=== PATIENT | female | born 1945 | race Caucasian/White ===

== ENCOUNTER → 2016-12-23 | Outpatient (CLI) | payer MEDICARE ==
--- NOTE | 2016-12-24 12:49 | MM ---
Reason for exam: screening (asymptomatic). Last mammogram was performed 1 year ago. History: Patient is postmenopausal. Benign left mammotome panel of the left breast, July 14, 2005. Took estrogen for 11 years beginning at age 48. Took progesterone for 11 years beginning at age 48. Physical Findings: A clinical breast exam by your physician is recommended on an annual basis and results should be correlated with mammographic findings. MG 3D Screening Mammo W/Cad Bilateral CC and MLO view(s) were taken. Prior study comparison: December 23, 2015, bilateral MG 3d screening mammo w/cad. December 02, 2014, bilateral MG screening mammo w CAD. November 20, 2013, bilateral digital screening mammo w/CAD. November 14, 2012, bilateral digital screening mammo w/CAD. There are scattered fibroglandular densities. Previous mammotome biopsy in the left breast. There is chronic nodularity in the left breast. No significant changes when compared with prior studies. ASSESSMENT: Negative, BI-RAD 1 RECOMMENDATION: Routine screening mammogram of both breasts in 1 year.
== END | disposition home or self-care (01) ==
LOC: RADMAMWWP 09:18
PROVIDERS: ATTEND Internal Medicine
DX: Z12.31 Encounter for screening mammogram for malignant neoplasm of breast (principal)
CPT/HCPCS: 77063; G0202

== ENCOUNTER → 2018-01-25 | Outpatient (CLI) | payer MEDICARE ==
--- NOTE | 2018-01-26 13:23 | MM ---
Reason for exam: screening (asymptomatic). Last mammogram was performed 1 year and 1 month ago. History: Patient is postmenopausal. Benign left mammotome panel of the left breast, July 14, 2005. Took estrogen for 11 years beginning at age 48. Took progesterone for 11 years beginning at age 48. Physical Findings: A clinical breast exam by your physician is recommended on an annual basis and results should be correlated with mammographic findings. MG 3D Screening Mammo W/Cad Bilateral CC and MLO view(s) were taken. Prior study comparison: December 23, 2016, bilateral MG 3d screening mammo w/cad. December 23, 2015, bilateral MG 3d screening mammo w/cad. There are scattered fibroglandular densities. Benign appearing bilateral calcifications. Left biopsy marker noted. ASSESSMENT: Benign, BI-RAD 2 RECOMMENDATION: Routine screening mammogram of both breasts in 1 year.
== END | disposition home or self-care (01) ==
LOC: RADMAMWWP 12:48
PROVIDERS: ATTEND Internal Medicine
DX: Z12.31 Encounter for screening mammogram for malignant neoplasm of breast (principal)
CPT/HCPCS: 77063; 77067

== ENCOUNTER → 2018-02-06 | Outpatient (CLI) | payer MEDICARE ==
--- NOTE | 2018-02-07 06:53 | US ---
EXAMINATION TYPE: US venous doppler duplex LE LT DATE OF EXAM: 02/06/2018 12:54 PM COMPARISON: NONE CLINICAL HISTORY: M25.572Pain in left ankle and joints of left foot. SIDE PERFORMED: TECHNIQUE: The lower extremity deep venous system is examined utilizing real time linear array sonog kunal with graded compression, doppler sonography and color-flow sonography. VESSELS IMAGED: External Iliac Vein (EIV) Common Femoral Vein Deep Femoral Vein Greater Saphenous Vein * Femoral Vein Popliteal Vein Small Saphenous Vein * Proximal Calf Veins (* superficial vessels) Left Leg: Negative for DVT GSV and posterior tib v's also scanned per order. Preliminary results given to Suha callahan per order immediately following exam. IMPRESSION: 1. No diagnostic evidence of DVT.
== END | disposition home or self-care (01) ==
LOC: RADUSWWP 12:25
PROVIDERS: ATTEND Orthopaedic Surgery
DX: M25.572 Pain in left ankle and joints of left foot (principal); M79.662 Pain in left lower leg; M21.42 Flat foot [pes planus] (acquired), left foot; M76.822 Posterior tibial tendinitis, left leg; I80.9 Phlebitis and thrombophlebitis of unspecified site

== ENCOUNTER → 2019-01-26 | Outpatient (CLI) | payer MEDICARE ==
--- NOTE | 2019-01-30 10:05 | MM ---
Reason for exam: screening (asymptomatic). Last mammogram was performed 1 year ago. History: Patient is postmenopausal. Benign left mammotome panel of the left breast, July 14, 2005. Took estrogen for 11 years beginning at age 48. Took progesterone for 11 years beginning at age 48. Physical Findings: A clinical breast exam by your physician is recommended on an annual basis and results should be correlated with mammographic findings. MG 3D Screening Mammo W/Cad Bilateral CC and MLO view(s) were taken. Prior study comparison: January 25, 2018, bilateral MG 3d screening mammo w/cad. December 23, 2016, bilateral MG 3d screening mammo w/cad. The breast tissue is heterogeneously dense. This may lower the sensitivity of mammography. There is an upper outer quadrant left mass at middle depth that appears smaller than priors however spot images will be performed. Benign appearing bilateral calcifications. No suspicious abnormality on the right. Left superior posterior depth asymmetry. ASSESSMENT: Incomplete: need additional imaging evaluation, BI-RAD 0 RECOMMENDATION: Special view mammogram of the left breast. If lesion persists on supplemental views, image directed ultrasound is recommended. [facility] will attempt to contact patient to return for supplemental views and ultrasound if indicated.
== END | disposition home or self-care (01) ==
LOC: RADMAMWWP 15:04
PROVIDERS: ATTEND Internal Medicine
DX: Z12.31 Encounter for screening mammogram for malignant neoplasm of breast (principal)
CPT/HCPCS: 77063; 77067

== ENCOUNTER → 2019-02-02 | Outpatient (CLI) | payer MEDICARE ==
--- NOTE | 2019-02-05 07:58 | MM ---
Reason for exam: additional evaluation requested from abnormal screening. Last mammogram was performed less than 1 month ago. History: Patient is postmenopausal. Benign left mammotome panel of the left breast, July 14, 2005. Took estrogen for 11 years beginning at age 48. Took progesterone for 11 years beginning at age 48. Physical Findings: Nurse did not find any significant physical abnormalities on exam. MG 3D Work Up W/Cad LT Spot compression CC, spot compression MLO, and LM view(s) were taken of the left breast. Prior study comparison: January 26, 2019, bilateral MG 3d screening mammo w/cad. January 25, 2018, bilateral MG 3d screening mammo w/cad. The breast tissue is heterogeneously dense. This may lower the sensitivity of mammography. Benign appearing calcifications in the left breast. The 4mm focal asymmetry of the upper outer quadrant at middle depth 8cm from nipple improves on additional views, however precautionary ultrasound will be performed. These results were verbally communicated with the patient and result sheet given to the patient on 02/02/19. ASSESSMENT: Incomplete: need additional imaging evaluation, BI-RAD 0 RECOMMENDATION: Ultrasound of the left breast. (upper outer quadrant)
--- NOTE | 2019-02-05 08:00 | USB ---
Reason for exam: additional evaluation requested from abnormal screening. History: Patient is postmenopausal. Benign left mammotome panel of the left breast, July 14, 2005. Took estrogen for 11 years beginning at age 48. Took progesterone for 11 years beginning at age 48. US Breast Workup Limited LT Left limited breast ultrasound including focal area of concern, retroareolar and axilla demonstrates a 0.4 x 1.0 x 0.5cm cystic lesion at 12 o'clock with debris seen on one image only, patient is asymptomatic, follow up 6 months to exclude small intraductal mass and a 1.3 x 0.8 x 0.5cm cystic lesion at the posterior nipple. These results were verbally communicated with the patient and result sheet given to the patient on 02/02/19. ASSESSMENT: Probably benign, BI-RAD 3 RECOMMENDATION: Ultrasound of the left breast in 6 months.
== END | disposition home or self-care (01) ==
LOC: RADMAMWWP 14:12
PROVIDERS: ATTEND Internal Medicine
DX: R92.8 Other abnormal and inconclusive findings on diagnostic imaging of breast (principal)
CPT/HCPCS: 77065; 76642; G0279; 77061

== ENCOUNTER → 2019-08-09 | Outpatient (CLI) | payer MEDICARE ==
--- NOTE | 2019-08-09 11:36 | USB ---
Reason for exam: follow-up at short interval from prior study. History: Patient is postmenopausal. Benign left mammotome panel of the left breast, July 14, 2005. Took estrogen for 11 years beginning at age 48. Took progesterone for 11 years beginning at age 48. Physical Findings: Nurse did not find any significant physical abnormalities on exam. US Breast Limited LT Left limited breast ultrasound including focal area of concern, retroareolar and axilla demonstrates a 0.5 x 0.3cm cystic lesion at the posterior nipple. These results were verbally communicated with the patient and result sheet given to the patient on 08/09/19. ASSESSMENT: Benign, BI-RAD 2 RECOMMENDATION: Return to routine screening mammogram schedule for both breasts. Back on schedule for January 2020.
== END | disposition home or self-care (01) ==
LOC: RADUSWWP 10:17
PROVIDERS: ATTEND Internal Medicine
DX: R92.8 Other abnormal and inconclusive findings on diagnostic imaging of breast (principal)

== ENCOUNTER → 2019-08-27 | Outpatient (CLI) | payer MEDICARE ==
[2019-08-27 16:41] LABS: African American GFR (CKD) 102.6 (60.0-200.0); Albumin 4.3 g/dL (3.80-4.90); Albumin/Globulin Ratio 2.15 (1.60-3.17); BUN/Creat Ratio 26.67 Ratio (12.00-20.00); Calcium 9.4 mg/dL (8.7-10.3); Chol/HDL Ratio 2.67; LDL Cholesterol,Calculated 75.2 mg/dL (0.0-131.0); Non-African American GFR(CKD) 88.5 (60.0-200.0); Potassium 4.5 mmol/L (3.5-5.5); Total Bilirubin 0.8 mg/dL (0.2-1.2); Total Protein 6.3 g/dL (6.2-8.2); VLDL Calculation 26.8 mg/dL (5.00-40.00)
== END | disposition home or self-care (01) ==
LOC: LABWHC1 10:07
PROVIDERS: ATTEND Internal Medicine Endocrinology, Diabetes & Metabolism
DX: E11.65 Type 2 diabetes mellitus with hyperglycemia (principal)
CPT/HCPCS: 36415; 80053; 80061; 82607; 84443

== ENCOUNTER → 2020-04-11 | Outpatient (CLI) | payer MEDICARE ==
--- NOTE | 2020-04-11 18:33 | BD ---
EXAMINATION TYPE: Axial Bone Density DATE OF EXAM: 04/11/2020 COMPARISON: 06.07.2012 CLINICAL HISTORY: 75 YR OLD FEMALE......ICD-10 CODE: M85.9 DISORDER OF BONE Height: 59.5 Weight: 199 FRAX RISK QUESTIONS: Glucocorticoids (More than 3mos): YES (Ex: prednisone, prednisolone, methylprednisolone, dexamethasone, and hydrocortisone). RISK FACTORS HISTORY OF: Postmenopausal woman: YES, IN HER 50s Take estrogen and/or progesterone medications: YES, FOR A SHORT WHILE Lost more than 2 inches in height since high school: YES Frequent falls: UNSTEADY, USING CANE Poor Health: MANY COMPLAINTS Hyperparathyroidism: NO Adrenal Insufficiency: NO MEDICATIONS: Prednisone or other steroids: STEROIDAL INHALER ON AND OFF FOR MANY YRS Thyroid Medications: YES, SYNTHROID...15+ YRS Additional Medications: BP MEDS, DIABETIC MEDS, REFLUX MEDS, STATIN FOR CHOLESTEROL, VIT D AND CALCIU M Additional History: HYPERTENSION, REFLUX, DIABETIC CHOLESTEROL, OSTEOARTHRITIS EXAM MEASUREMENTS: Bone mineral densitometry was performed using the [employer] System. Bone mineral density as measured about the Lumbar spine is: ----- L1-L4(G/cm2): 1.488 T Score Values are as follows: ----- L1: 0.7 ----- L2: 2.5 ----- L3: 3.5 ----- L4: 3.4 ----- L1-L4: 2.6 Bone mineral density has: Increased 14.9% since study of: 06.07.2012 Bone mineral density about the R hip (g/cm2): 1.033 Bone mineral density about the L hip (g/cm2): 0.998 T Score values are as follows: -----R Neck: -1.1 -----L Neck: -1.2 -----R Total:0.2 -----L Total: -0.1 Bone mineral density has: Decreased -5.1% since study of: 06.07.2012 FRAX%s: THERE IS A 14.9% CHANCE OFA MAJOR OSTEROPRORTIC FX AND 2.4% IMPRESSION: Osteopenia (T Score between -2.5 and -1). There is slightly increased risk of fracture and the patient may be considered for treatment. Re-Screen 2-5 years. NOTE: T-SCORE=SD OF THE YOUNG ADULT MEAN.
== END | disposition home or self-care (01) ==
LOC: RADBDWWP 10:41
PROVIDERS: ATTEND Internal Medicine
DX: M85.80 Other specified disorders of bone density and structure, unspecified site (principal)
CPT/HCPCS: 77080

== ENCOUNTER → 2020-04-15 | Outpatient (CLI) | payer MEDICARE ==
--- NOTE | 2020-04-16 09:57 | MM ---
Reason for exam: screening (asymptomatic). Last mammogram was performed 1 year and 2 months ago. History: Patient is postmenopausal. Benign left mammotome panel of the left breast, July 14, 2005. Took estrogen for 11 years beginning at age 48. Took progesterone for 11 years beginning at age 48. Physical Findings: A clinical breast exam by your physician is recommended on an annual basis and results should be correlated with mammographic findings. MG 3D Screening Mammo W/Cad Bilateral CC and MLO view(s) were taken. Prior study comparison: February 02, 2019, left breast MG 3d work up w/cad LT. January 26, 2019, bilateral MG 3d screening mammo w/cad. There are scattered fibroglandular densities. Stable benign calcifications. There is no discrete abnormality. No significant changes when compared with prior studies. ASSESSMENT: Benign, BI-RAD 2 RECOMMENDATION: Routine screening mammogram of both breasts in 1 year.
== END | disposition home or self-care (01) ==
LOC: RADMAMWWP 13:18
PROVIDERS: ATTEND Internal Medicine
DX: Z12.31 Encounter for screening mammogram for malignant neoplasm of breast (principal)
CPT/HCPCS: 77063; 77067

== ENCOUNTER → 2020-07-15 | Outpatient (CLI) | payer MEDICARE ==
[2020-07-15 21:23] LABS: Hemoglobin A1C 7.7 % (4.0-6.0)
== END | disposition home or self-care (01) ==
LOC: LABWHC1 11:09
PROVIDERS: ATTEND Internal Medicine Endocrinology, Diabetes & Metabolism
DX: E11.65 Type 2 diabetes mellitus with hyperglycemia (principal)
CPT/HCPCS: 36415; 83036

== ENCOUNTER → 2020-07-23 | Outpatient (CLI) | payer MEDICARE | END | disposition home or self-care (01) | LOC: LABWHC1 15:58 | PROVIDERS: ATTEND Internal Medicine | DX: Z53.9 Procedure and treatment not carried out, unspecified reason (principal) ==

== ENCOUNTER → 2020-11-14 | Outpatient (CLI) | payer MEDICARE ==
[2020-11-14 15:42] LABS: African American GFR (CKD) 101.9 (60.0-200.0); Albumin 4.5 g/dL (3.80-4.90); Albumin/Globulin Ratio 1.96 (1.60-3.17); Anion Gap 8.5 mmol/L (4.00-12.00); BUN/Creat Ratio 21.67 Ratio (12.00-20.00); Calcium 9.7 mg/dL (8.7-10.3); Carbon Dioxide 27.5 mmol/L (21.6-31.8); Chol/HDL Ratio 3.13; Globulin 2.3 g/dL (1.6-3.3); LDL Cholesterol,Calculated 88.6 mg/dL (0.0-131.0); Non-African American GFR(CKD) 87.9 (60.0-200.0); Potassium 4.5 mmol/L (3.5-5.5); Total Bilirubin 0.6 mg/dL (0.2-1.2); Total Protein 6.8 g/dL (6.2-8.2); VLDL Calculation 26.4 mg/dL (5.00-40.00)
[2020-11-14 16:57] LABS: Hemoglobin A1C 7.9 % (4.0-6.0)
== END | disposition home or self-care (01) ==
LOC: LABWHC1 09:21
PROVIDERS: ATTEND Internal Medicine Endocrinology, Diabetes & Metabolism
DX: E11.65 Type 2 diabetes mellitus with hyperglycemia (principal)
CPT/HCPCS: 36415; 80053; 80061; 83036; 84443

== ENCOUNTER → 2021-05-28 | Outpatient (CLI) | payer MEDICARE ==
[2021-05-29 08:49] LABS: Urine Creatinine 66.9 mg/dL (28.0-217.0)
== END | disposition home or self-care (01) ==
LOC: LABWHC1 09:13
PROVIDERS: ATTEND Internal Medicine Endocrinology, Diabetes & Metabolism
DX: E11.65 Type 2 diabetes mellitus with hyperglycemia (principal)
CPT/HCPCS: 36415; 80053; 80061; 82043; 82570; 83036; 84443

== ENCOUNTER → 2021-07-20 | Outpatient (CLI) | payer MEDICARE ==
[2021-07-20 16:17] LABS: Basophils # (A) 0.08 X 10*3/uL (0.00-0.10); Basophils % (A) 0.9 %; Eosinophils # (A) 0.25 X 10*3/uL (0.04-0.35); Eosinophils % (A) 2.9 %; HCT 40.1 % (37.2-46.3); HGB 12.3 g/dL (12.0-15.0); Lymphocytes # (A) 2.44 X 10*3/uL (0.90-5.00); Lymphocytes % (A) 28.4 %; MCH 29.1 pg (27.0-32.0); MCHC 30.7 g/dL (32.0-37.0); Mean Platelet Volume 10.2 fL (9.5-12.2); Monocytes # (A) 0.43 X 10*3/uL (0.20-1.00); Neutrophils # (A) 5.35 X 10*3/uL (1.80-7.70); Neutrophils % (A) 62.5 %; Platelet Count 339 X 10*3/uL (140-440); RBC 4.22 X 10*6/uL (4.10-5.20); RDW 12.7 % (11.5-14.5); WBC 8.58 X 10*3/uL (4.50-10.00)
[2021-07-20 20:35] LABS: ALT 16 U/L (8-44); AST 16 U/L (13-35); African American GFR (CKD) 104.1 (60.0-200.0); Albumin 3.8 g/dL (3.8-4.9); Albumin/Globulin Ratio 1.42 (1.60-3.17); Alkaline Phosphatase 97 U/L (41-126); BUN/Creat Ratio 23.64 Ratio (12.00-20.00); Calcium 9.4 mg/dL (8.7-10.3); Carbon Dioxide 27.1 mmol/L (21.6-31.8); Chloride 101 mmol/L (96-109); Chol/HDL Ratio 3.33 Ratio; Globulin 2.7 g/dL (1.6-3.3); Glucose 253 mg/dL (70-110); LDL Cholesterol,Calculated 77.4 mg/dL (0.0-131.0); Non-African American GFR(CKD) 89.8 (60.0-200.0); Potassium 4.5 mmol/L (3.5-5.5); Sodium 140 mmol/L (135-145); Total Protein 6.5 g/dL (6.2-8.2)
== END | disposition home or self-care (01) ==
LOC: LABWHC1 10:09
PROVIDERS: ATTEND Family Medicine
DX: Z00.00 Encounter for general adult medical examination without abnormal findings (principal); E11.9 Type 2 diabetes mellitus without complications; E03.9 Hypothyroidism, unspecified; I63.9 Cerebral infarction, unspecified; R53.1 Weakness
CPT/HCPCS: 36415; 80053; 80061; 83036; 84443; 85025

== ENCOUNTER 2021-09-30 09:30 | Day surgery (SDC) | payer MEDICARE ==
[2021-09-25 11:14] VITALS: BMI 34.7
[~2021-09-30 09:30] MED LIST: LACTATED RINGERS 1,000 ML IV SCH; LIDOCAINE 1% (10MG/ML) FOR IV START INTRADERMA PRN
[2021-09-30 09:57] VITALS: RESP 18; TEMP 99
[2021-09-30 09:59] LABS: Glucose,Whole Blood 141 mg/dL (75-99)
[2021-09-30] MEDS ORDERED: fentaNYL (PF) 50 MCG/ML 2 ML AMP ONE (10:17)
[2021-09-30] MEDS ORDERED: IV FLUID CONTINUATION 1,000 ML IV ONE (10:25)
[2021-09-30] MEDS ORDERED: BENZOCAINE SPRAY 1 CAN MUCOUS MEM ONE (10:40)
[2021-09-30] MEDS ORDERED: fentaNYL (PF) 50 MCG/ML 2 ML AMP IV ONE (10:40)
[2021-09-30] MEDS ORDERED: MIDAZOLAM 2 MG/2 ML VIAL IV ONE (10:40)
[2021-09-30 11:51] VITALS: BP 138/65; PULSE 76
--- NOTE | 2021-09-30 13:19 | ECHOT ---
TRANSESOPHAGEAL ECHOCARDIOGRAM INDICATION: TIA. PROCEDURE NOTE: After obtaining informed consent, transesophageal echocardiogram is performed in left lateral position using an Omniplane probe. Local and IV sedation was obtained with 2 mg of Versed and 25 mcg of fentanyl. Patient tolerated the procedure well without any obvious immediate complications. Total sedation time was 8 minutes. We performed 2D, M-mode, color Doppler and spectral analysis. FINDINGS: 1. Interatrial septum: There is evidence of sdgd-nj-qjezf shunt by color-flow Doppler. There is no evidence of xxkra-nz-xwdn shunt by agitated saline contrast study. 2. Left atrial appendage is free of thrombus. 3. Left atrium appears mildly enlarged. 4. Right atrium and right ventricle are within normal limits. 5. Left ventricle has normal size and systolic function. 6. Aorta shows mild atherosclerotic changes. 7. Aortic valve is a 3-leaflet valve. There is mild aortic regurgitation noted. 8. Mitral valve shows mild mitral regurgitation. 9. Tricuspid valve appears normal. CONCLUSIONS: 1. There is evidence of kgct-yl-tkykz shunt by color-flow Doppler. 2. There is no evidence of ubdfx-xf-refl shunt by agitated saline contrast study. 3. No evidence of intracardiac thrombus. MMODL / IJN: [id number] /
== END 2021-09-30 12:12 | disposition home or self-care (01) ==
LOC: CATHCVL 09:30
PROVIDERS: ATTEND Internal Medicine Cardiovascular Disease
DX: I67.9 Cerebrovascular disease, unspecified (principal); I70.90 Unspecified atherosclerosis; I34.0 Nonrheumatic mitral (valve) insufficiency; Z20.822 Contact with and (suspected) exposure to COVID-19
CPT/HCPCS: 93312; 93320; 93325; 87635; J2250; J3010

== ENCOUNTER → 2022-02-08 | Outpatient (CLI) | payer MEDICARE ==
[2022-02-08 10:49] LABS: Microalbumin Creatinine Ratio <30 mg/g Creat (0-30)
[2022-02-08 11:09] LABS: ALT 21 U/L (8-44); AST 19 U/L (13-35); African American GFR (CKD) 100.5 (60.0-200.0); Albumin 4.1 g/dL (3.8-4.9); Albumin/Globulin Ratio 1.71 (1.60-3.17); Alkaline Phosphatase 88 U/L (41-126); Blood Urea Nitrogen 11.7 mg/dL (9.0-27.0); Calcium 9.4 mg/dL (8.7-10.3); Carbon Dioxide 25.7 mmol/L (20.0-27.5); Chloride 104 mmol/L (96-109); Chol/HDL Ratio 2.56 Ratio; Globulin 2.4 g/dL (1.6-3.3); Glucose 166 mg/dL (70-110); LDL Cholesterol,Calculated 68.4 mg/dL (0.0-131.0); Non-African American GFR(CKD) 86.7 (60.0-200.0); Potassium 4.6 mmol/L (3.5-5.5); Sodium 141 mmol/L (135-145); Total Protein 6.5 g/dL (6.2-8.2)
== END | disposition home or self-care (01) ==
LOC: LABWHC1 07:38
PROVIDERS: ATTEND Internal Medicine Endocrinology, Diabetes & Metabolism
DX: E11.65 Type 2 diabetes mellitus with hyperglycemia (principal)
CPT/HCPCS: 36415; 80053; 80061; 82043; 82570; 83036; 84443

== ENCOUNTER 2022-06-16 06:52 | Day surgery (SDC) | payer MEDICARE ==
--- NOTE | 2022-06-15 15:36 | P.GSHP ---
History of Present Illness H&P Date: 06/15/22 77 yo femindy taylor who a couple of weeks ago presented to [facility] with a left ureteral stone, uti with sepsis and pyonephrosis left She had an emergent stent placed and was given ab. SHe has recovered form her sepsis and now comes for left ureteroscopy with laser lithotripsy and stent and stone removal. - Constitutional Constitutional: Denies chills, Denies fever - EENT Eyes: denies blurred vision, denies pain Ears, nose, mouth and throat: Denies headache, Denies sore throat - Cardiovascular Cardiovascular: Denies chest pain, Denies shortness of breath - Respiratory Respiratory: Denies cough, Denies 7 - Gastrointestinal Gastrointestinal: Denies abdominal pain, Denies diarrhea, Denies nausea, Denies vomiting - Genitourinary (Female) Genitourinary: Denies dysuria, Denies hematuria - Genitourinary (Male) Genitourinary: Denies dysuria, Denies hematuria - Musculoskeletal Musculoskeletal: Denies myalgias - Integumentary Integumentary: Denies pruritus, Denies rash - Neurological Neurological: Denies numbness, Denies weakness - Psychiatric Psychiatric: Denies anxiety, Denies depression - Endocrine Endocrine: Denies fatigue, Denies weight change Past Medical History Past Medical History: Atrial Fibrillation, Asthma, CVA/TIA, Diabetes Mellitus, Hyperlipidemia, Hypertension, Memory Impairment, Osteoarthritis (OA), Thyroid Disorder Additional Past Medical History / Comment(s): 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 @[facility] for kidney stone & "infection", has loop recorder History of Any Multi-Drug Resistant Organisms: None Reported Past Surgical History: Bladder Surgery, Cholecystectomy, Joint Replacement, Orthopedic Surgery Additional Past Surgical History / Comment(s): bladder suspension x2, colonoscopy, amelia. knee replacements, surg. for kidney stone, cataracts removed, loop recorder insertion, cystoscopy w/ureteral stent Past Anesthesia/Blood Transfusion Reactions: Motion Sickness, Postoperative Nausea & Vomiting (PONV) Smoking Status: Former smoker - Past Family History Mother Family Medical History: Cancer Medications and Allergies Home Medications Medication Instructions Recorded Confirmed Type Albuterol Sulfate [Proair Hfa] 1 - 2 puff INHALATION Q6HR PRN 08/25/14 06/15/22 History Levothyroxine Sodium [Synthroid] 75 mcg PO DAILY 08/25/14 06/15/22 History Montelukast Sodium [Singulair] 10 mg PO HS 08/25/14 06/15/22 History Oxybutynin Chloride [Ditropan XL] 7.5 mg PO DAILY 08/25/14 06/15/22 History Valsartan [Diovan] 80 mg PO HS 08/25/14 06/15/22 History glyBURIDE [Diabeta] 2 mg PO AC-BID 11/23/14 06/15/22 History Atorvastatin [Lipitor] 80 mg PO HS 09/25/21 06/15/22 History Cyanocobalamin (Vitamin B-12) 5,000 mcg PO DAILY 09/25/21 06/15/22 History [Vitamin B12] Furosemide [Lasix] 20 mg PO Q2D 09/25/21 06/15/22 History Insulin Glargine,Hum.rec.anlog 18 unit SQ HS 09/25/21 06/15/22 History [Lantus Solostar Pen] Loratadine [Claritin] 10 mg PO HS 09/25/21 06/15/22 History Prevagen 1 tab PO DAILY 09/25/21 06/15/22 History Vit C/E/Zn/Coppr/Lutein/Zeaxan 1 tab PO DAILY 09/25/21 06/15/22 History [Preservision Areds 2 Chew Tab] Gabapentin [Neurontin] 100 mg PO TID 09/30/21 06/15/22 History sitaGLIPtin [Januvia] 100 mg PO DAILY 09/30/21 06/15/22 History Apixaban [Eliquis] 5 mg PO BID 06/15/22 06/15/22 History Biotin 5 mg PO DAILY 06/15/22 06/15/22 History Calcium + Magnesium 1 tab PO DAILY 06/15/22 History Cholecalciferol [Vitamin D3 (25 25 mcg PO DAILY 06/15/22 06/15/22 History Mcg = 1000 Iu)] Cranactin 1 tab PO DAILY 06/15/22 History INSULIN ASPART (NovoLOG) [NovoLOG 5 unit SQ AC-SUPPER 06/15/22 06/15/22 History (formulary)] Multivitamins, Thera [Multivitamin 1 tab PO DAILY 06/15/22 06/15/22 History (formulary)] Ubidecarenone [Co Q-10] 100 mg PO DAILY 06/15/22 06/15/22 History Allergies Allergy/AdvReac Type Severity Reaction Status Date / Time prednisone Allergy Rash/Hives Verified 06/15/22 10:42 homatropine methylbromide AdvReac Nausea & Verified 06/15/22 10:42 [From Hydromet] Vomiting hydrocodone bitartrate AdvReac Nausea & Verified 06/15/22 10:42 [From Hydromet] Vomiting morphine AdvReac Nausea & Verified 06/15/22 10:42 Vomiting Surgical - Exam - General well developed, well nourished, no distress - Eyes normal ocular movement, no icteric - ENT no hearing loss, no congestion - Neck no masses, trachea midline - Respiratory normal respiratory effort, clear to auscultation - Abdomen Abdomen: soft, non tender, no guarding, no rigid, no rebound - Integumentary no rash, no abnormal pigmentation - Neurologic no disoriented, no combative - Psychiatric oriented to time, oriented to person, oriented to place, speech is normal, memory intact Results - Imaging CT scan - abdomen: report reviewed, image reviewed CT scan - pelvis: report reviewed, image reviewed Assessment and Plan Assessment: Impresiion: left ureteral stone with obstruction and pyonephrosis, s/p stent placement. Plan: left ureteroscopy with laser lithotripsy
[~2022-06-16 06:52] MED LIST changes: +AMPICILLIN 1,000 MG in SODIUM CHLORIDE 0.9% 50 ML IVPB PRN; +GENTAMICIN 100 MG in SODIUM CHLORIDE 0.9% 100 ML IVPB PRN; -LACTATED RINGERS 1,000 ML IV SCH; -LIDOCAINE 1% (10MG/ML) FOR IV START INTRADERMA PRN
[2022-06-16] MEDS ORDERED: LACTATED RINGERS 1,000 ML IV SCH (07:05)
[2022-06-16] MEDS ORDERED: ONDANSETRON 4 MG/2 ML VIAL IVP ONE (07:05)
[2022-06-16] MEDS ORDERED: fentaNYL (PF) 50 MCG/ML 2 ML AMP IV PRN (07:05)
[2022-06-16 07:53] LABS: Glucose,Whole Blood 122 mg/dL (70-110)
--- NOTE | 2022-06-16 08:10 | XR ---
EXAMINATION TYPE: XR KUB DATE OF EXAM: 06/16/2022 Comparison: None Clinical History: 77-year-old female N20 calculus Findings: Cholecystectomy clips. Left ureteral stent is present. Extensive bowel content largely obscures the r enal shadows in the course of the ureters. There are some vascular calcifications noted in the pelvis . Moderate to large stool burden. Nonobstructive bowel gas pattern. Impression: Left-sided ureteral stent noted. Bowel content with moderate to large stool largely obscures the isac l shadows and course of the ureters.
[2022-06-16] MEDS ORDERED: LIDOCAINE 2% INJ 20 MG/ML (2 ML VIAL) ONE (08:25)
[2022-06-16] MEDS ORDERED: fentaNYL (PF) 50 MCG/ML 2 ML AMP ONE (08:25)
[2022-06-16] MEDS ORDERED: SUCCINYLCHOLINE CHLORIDE 200 MG/10 ML VIAL IV ONE (08:25)
[2022-06-16] MEDS ORDERED: MIDAZOLAM 2 MG/2 ML VIAL ONE (08:25)
[2022-06-16] MEDS ORDERED: PROPOFOL 10 MG/ML 20 ML VIAL IV ONE (08:25)
[2022-06-16] MEDS ORDERED: IOPAMIDOL-370 50ML BTL MISCELLANE ONE (08:52)
--- NOTE | 2022-06-16 09:14 | P.OP ---
Date of Procedure: 06/16/22 Preoperative Diagnosis: Left ureteral stone, status post placement of stent for obstruction, pyonephrosis left and urinary tract infection with sepsis Postoperative Diagnosis: Same Procedure(s) Performed: Cystoscopy, removal double-J catheter left, left ureteroscopy Anesthesia: NATY Surgeon: Deon Martínez Estimated Blood Loss (ml): 0 Pathology: none sent Indications for Procedure: The patient is 77. Couple weeks ago she was in the hospital with an obstructing ureteral stone, urinary tract infection with sepsis and pyelonephrosis left. She had an emergent stent with antibiotics. Her sepsis resolved. She now comes for stent and stone removal on the left. Description of Procedure: The patient is brought to the operating suite. She's given general anesthesia. She's placed lithotomy position with sterile prep and drape. Cystoscopy Foroblique lens and 21-Azeri sheath is performed. Urethra is normal. The bladder is inspected in its entirety without tumor stone. There is some mild inflammation from the stent. The left ureteral stent is grasped and pulled to the urethral meatus. An 035 wires passed through it up into the leftkidney. Alongside the wires passed the semirigid scope. No obvious stone is seen in the ureter. I then pass a flexible ureteroscope up into the left kidney and look through each calyx sequentially without identification of stone. I do a pullout ureteroscopy and there is no stone. The bladder strain the patient's awake and returned recovery room good condition Impression successful left stent removal with ureteroscopy. The stone must have crumbled and passed Recommendations: The patient we discharged home upon recovery and found the office in one week.
[2022-06-16 09:22] VITALS: TEMP 98
[2022-06-16] MEDS ORDERED: LABETALOL SYRINGE 5 MG/ML IVP ONE (09:35)
--- NOTE | 2022-06-16 10:04 | FL ---
EXAMINATION TYPE: FL urography retrograde DATE OF EXAM: 06/16/2022 FLUOROSCOPY Fluoroscopy time of 15 seconds was used during urologic intervention for left renal stone. 1 image/s document/s the procedure.
[2022-06-16 10:10] VITALS: RESP 20
[2022-06-16 10:31] VITALS: BP 136/66; PULSE 99
== END 2022-06-16 10:50 | disposition home or self-care (01) ==
LOC: OR 06:52
PROVIDERS: ATTEND Urology
DX: N20.1 Calculus of ureter (principal); A41.9 Sepsis, unspecified organism; N13.6 Pyonephrosis; N39.0 Urinary tract infection, site not specified; I48.91 Unspecified atrial fibrillation; J45.909 Unspecified asthma, uncomplicated; E11.9 Type 2 diabetes mellitus without complications; E78.5 Hyperlipidemia, unspecified; K91.0 Vomiting following gastrointestinal surgery; I10 Essential (primary) hypertension; M19.90 Unspecified osteoarthritis, unspecified site; E07.9 Disorder of thyroid, unspecified; R41.3 Other amnesia; Z98.890 Other specified postprocedural states; Z90.49 Acquired absence of other specified parts of digestive tract; Z86.73 Personal history of transient ischemic attack (TIA), and cerebral infarction without residual deficits; T75.3XXD Motion sickness, subsequent encounter; Z87.891 Personal history of nicotine dependence; Z79.899 Other long term (current) drug therapy; Z79.890 Hormone replacement therapy; Z79.01 Long term (current) use of anticoagulants; Z79.4 Long term (current) use of insulin
CPT/HCPCS: 74420; 74018; 52310; C1769; J2250; J0330; J2405; J3010; J1580; J0290; J2704; Q9967; J2001

== ENCOUNTER → 2022-08-09 | Outpatient (CLI) | payer MEDICARE ==
[2022-08-09 15:41] LABS: ALT 18 U/L (8-44); AST 20 U/L (13-35); African American GFR (CKD) 96.6 (60.0-200.0); Albumin 4.3 g/dL (3.8-4.9); Albumin/Globulin Ratio 1.82 (1.60-3.17); Alkaline Phosphatase 88 U/L (41-126); BUN/Creat Ratio 20.41 Ratio (12.00-20.00); Blood Urea Nitrogen 13.8 mg/dL (9.0-27.0); Calcium 9.7 mg/dL (8.7-10.3); Carbon Dioxide 27.7 mmol/L (20.0-27.5); Chloride 103 mmol/L (96-109); Chol/HDL Ratio 2.61 Ratio; Globulin 2.3 g/dL (1.6-3.3); Glucose 161 mg/dL (70-110); LDL Cholesterol,Calculated 69.9 mg/dL (0.0-131.0); Non-African American GFR(CKD) 83.4 (60.0-200.0); Potassium 4.9 mmol/L (3.5-5.5); Sodium 143 mmol/L (135-145); Total Protein 6.6 g/dL (6.2-8.2)
[2022-08-09 18:17] LABS: Urine Creatinine 82.1 mg/dL (28.0-217.0)
== END | disposition home or self-care (01) ==
LOC: LABWHC1 08:30
PROVIDERS: ATTEND Internal Medicine Endocrinology, Diabetes & Metabolism
DX: E11.65 Type 2 diabetes mellitus with hyperglycemia (principal)
CPT/HCPCS: 36415; 80053; 80061; 82043; 82570; 83036; 84443

== ENCOUNTER → 2023-03-03 | Outpatient (CLI) | payer MEDICARE ==
[2023-03-03 16:37] LABS: ALT 21 U/L (8-44); AST 20 U/L (13-35); Albumin 4.4 d/dL (3.8-4.9); Albumin/Globulin Ratio 1.63 Ratio (1.60-3.17); Alkaline Phosphatase 87 U/L (41-126); Blood Urea Nitrogen 11.1 mg/dL (9.0-27.0); Calcium 9.7 mg/dL (8.7-10.3); Carbon Dioxide 26.6 mmol/L (21.6-31.8); Chloride 104 mmol/L (96-109); Chol/HDL Ratio 2.69 Ratio; Globulin 2.7 d/dL (1.6-3.3); Glucose 161 mg/dL (70-110); LDL Cholesterol,Calculated 70.8 mg/dL (0.0-131.0); Potassium 4.1 mmol/L (3.5-5.5); Sodium 144 mmol/L (135-145); Total Bilirubin 0.6 mg/dL (0.3-1.2); Total Protein 7.1 d/dL (6.2-8.2)
== END | disposition home or self-care (01) ==
LOC: LABWHC1 08:37
PROVIDERS: ATTEND Internal Medicine Endocrinology, Diabetes & Metabolism
DX: E11.65 Type 2 diabetes mellitus with hyperglycemia (principal)
CPT/HCPCS: 36415; 80053; 80061; 82043; 82570; 83036; 84443

== ENCOUNTER → 2023-06-06 | Outpatient (CLI) | payer MEDICARE ==
[2023-06-06 21:33] LABS: Basophils # (A) 0.06 X 10*3/uL (0.00-0.10); Basophils % (A) 0.8 %; Eosinophils # (A) 0.11 X 10*3/uL (0.04-0.35); Eosinophils % (A) 1.4 %; HCT 39.9 % (37.2-46.3); Lymphocytes # (A) 3.03 X 10*3/uL (0.90-5.00); Lymphocytes % (A) 38.6 %; MCH 30.4 pg (27.0-32.0); MCHC 32.6 d/dL (32.0-37.0); MCV 93.2 FL (80.0-97.0); Mean Platelet Volume 10.6 FL (9.5-12.2); Monocytes # (A) 0.47 X 10*3/uL (0.20-1.00); NRBC Per 100 WBC 0 X 10*3/uL (0.00-0.01); Neutrophils # (A) 4.15 X 10*3/uL (1.80-7.70); Neutrophils % (A) 52.8 %; Platelet Count 288 X 10*3/uL (140-440); RBC 4.28 X 10*6/uL (4.10-5.20); RDW 12.4 % (11.5-14.5); WBC 7.85 X 10*3/uL (4.50-10.00)
[2023-06-06 22:06] LABS: Erythrocyte Sedimentation Rate 9 mm/Hr (0-30)
== END | disposition home or self-care (01) ==
LOC: LABWHC1 16:16
PROVIDERS: ATTEND Ophthalmology
DX: H34.8320 Tributary (branch) retinal vein occlusion, left eye, with macular edema (principal)
CPT/HCPCS: 36415; 85025; 85652

== ENCOUNTER → 2023-10-18 | Outpatient (CLI) | payer MEDICARE ==
[2023-10-18 17:03] LABS: ALT 19 U/L (8-44); AST 20 U/L (13-35); Albumin 4.5 g/dL (3.8-4.9); Albumin/Globulin Ratio 1.73 Ratio (1.60-3.17); Alkaline Phosphatase 93 U/L (41-126); Blood Urea Nitrogen 13.8 mg/dL (9.0-27.0); Calcium 9.9 mg/dL (8.7-10.3); Carbon Dioxide 29.9 mmol/L (21.6-31.8); Chloride 101 mmol/L (96-109); Chol/HDL Ratio 2.55 Ratio; Globulin 2.6 g/dL (1.6-3.3); Glucose 140 mg/dL (70-110); Potassium 4.5 mmol/L (3.5-5.5); Sodium 141 mmol/L (135-145); Total Bilirubin 0.6 mg/dL (0.3-1.2); Total Protein 7.1 g/dL (6.2-8.2)
== END | disposition home or self-care (01) ==
LOC: LABWHC1 12:35
PROVIDERS: ATTEND Internal Medicine Endocrinology, Diabetes & Metabolism
DX: E11.65 Type 2 diabetes mellitus with hyperglycemia (principal)
CPT/HCPCS: 36415; 80053; 80061; 82043; 82570; 83036; 84443

== ENCOUNTER → 2024-01-30 | Outpatient (CLI) | payer MEDICARE ==
[2024-01-30 16:12] LABS: ALT 17 U/L (8-44); AST 17 U/L (13-35); Albumin 4.4 g/dL (3.8-4.9); Albumin/Globulin Ratio 1.76 Ratio (1.60-3.17); Alkaline Phosphatase 84 U/L (41-126); Blood Urea Nitrogen 14.4 mg/dL (9.0-27.0); Calcium 9.6 mg/dL (8.7-10.3); Carbon Dioxide 27.6 mmol/L (21.6-31.8); Chloride 104 mmol/L (96-109); Chol/HDL Ratio 2.62 Ratio; Globulin 2.5 g/dL (1.6-3.3); Glucose 195 mg/dL (70-110); LDL Cholesterol,Calculated 68.8 mg/dL (0.0-131.0); Potassium 4.3 mmol/L (3.5-5.5); Sodium 141 mmol/L (135-145); Total Bilirubin 0.7 mg/dL (0.3-1.2); Total Protein 6.9 g/dL (6.2-8.2)
== END | disposition home or self-care (01) ==
LOC: LABWHC1 08:40
PROVIDERS: ATTEND Internal Medicine Endocrinology, Diabetes & Metabolism
DX: E11.65 Type 2 diabetes mellitus with hyperglycemia (principal)
CPT/HCPCS: 36415; 80053; 80061; 82043; 82570; 83036; 84443

== ENCOUNTER → 2024-08-31 | Outpatient (CLI) | payer MEDICARE ==
--- NOTE | 2024-09-07 16:35 | BD ---
EXAMINATION TYPE: Axial Bone Density DATE OF EXAM: 08/31/2024 CLINICAL HISTORY: 79 years old Female. ICD-10 CODE: Z78.0 ASYMPTOMATIC MENOPAUSAL STATE , Additional History: Height: 59.5 Weight: 183 FRAX RISK QUESTIONS: Family History (Parent hip fracture): no History of Fracture in Adulthood: no Secondary Osteoporosis: no RISK FACTORS HISTORY OF: Surgery to Spine/Hip(right/left)/Wrist (right/left): no MEDICATIONS: Thyroid Medications: yes Which medication: Synthroid How Lon+ years Osteoporosis Medications: no EXAM MEASUREMENTS: Bone mineral densitometry was performed using the [employer] System. Bone mineral density as measured about the Lumbar spine is: ----- L1-L4(G/cm2): 1.392 T Score Values are as follows: ----- L1: -0.3 ----- L2: 1.8 ----- L3: 1.9 ----- L4: 3.1 ----- L1-L4: 1.8 Z Score Values are as follows: ----- L1: 1.0 ----- L2: 3.0 ----- L3: 3.2 ----- L4: 4.3 ----- L1-L4: 3.0 Bone mineral density has: Decreased -6.5% since study of: 04/11/2020 Bone mineral density about the R hip (g/cm2): 0.881 Bone mineral density about the L hip (g/cm2): 0.861 T Score values are as follows: -----R Neck: -1.7 -----L Neck: -2.1 -----R Total: -1.0 -----L Total: -1.2 Z Score values are as follows: -----R Neck: 0.1 -----L Neck: -0.3 -----R Total: 0.7 -----L Total: 0.5 Bone mineral density has: Decreased -14.2% since study of: 04/11/2020 FRAX%s: The graph provided illustrates a 15.1% chance for a major osteoporotic fx and a 4.6% chance f or the hips probability for fx in 10 years time. IMPRESSION: Osteopenia (T Score between -2.5 and -1). There is slightly increased risk of fracture and the patient may be considered for treatment. Re-Screen 2-5 years. NOTE: T-SCORE=SD OF THE YOUNG ADULT MEAN. [facility], , 09/07/2024 4:33 PM
== END | disposition home or self-care (01) ==
LOC: RADBDWWP 13:03
PROVIDERS: ATTEND Family Medicine
DX: M85.89 Other specified disorders of bone density and structure, multiple sites (principal); Z78.0 Asymptomatic menopausal state
CPT/HCPCS: 77080

== ENCOUNTER → 2025-02-22 | Outpatient (CLI) | payer MEDICARE ==
--- NOTE | 2025-02-22 15:14 | XR ---
EXAMINATION TYPE: XR lumbar spine 2 or 3V DATE OF EXAM: 02/22/2025 3:02 PM COMPARISON: 04/22/2010 CLINICAL INDICATION: Female, 80 years old with history of M19.90 OSTEOARTHRITIS, pain TECHNIQUE: 3 view(s) obtained. FINDINGS: There are 5 lumbar-type vertebral bodies. Pedicles are intact. There is narrowing of the disc height L4-5 with vacuum disc phenomenon. Some milder narrowing of the L3-4 and L2-3 disc heights is present. Vertebral body heights are preserved. No spondylolisthesis. IMPRESSION: 1. Degenerative disc changes lumbar spine, progressive from comparison [facility], , 02/22/2025 3:12 PM
--- NOTE | 2025-02-22 15:21 | XR ---
EXAMINATION TYPE: XR thoracic spine 2V DATE OF EXAM: 02/22/2025 3:02 PM COMPARISON: None. CLINICAL INDICATION: Female, 80 years old with history of M19.90 OSTEOARTHRITIS, pain TECHNIQUE: 3 view(s) obtained. FINDINGS: Scoliosis present. Spondylosis is present. Disc heights appear preserved. Vertebral body heights are preserved. IMPRESSION: 1. Scoliosis. No suspicious acute changes evident. [facility], , 02/22/2025 3:18 PM
== END | disposition home or self-care (01) ==
LOC: RADXRMAIN 14:23
PROVIDERS: ATTEND Family Medicine
DX: M51.369 Other intervertebral disc degeneration, lumbar region without mention of lumbar back pain or lower extremity pain (principal); M41.84 Other forms of scoliosis, thoracic region; M19.90 Unspecified osteoarthritis, unspecified site
CPT/HCPCS: 72070; 72100